=== PATIENT | female | born 2000 | race Caucasian/White ===

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

== ENCOUNTER 2024-03-28 16:38 | Emergency (ER) | payer OTHER, SELFPAY ==
--- NOTE | ~2024-03-28 | CT_ITS ---
CLINICAL HISTORY: cough, R CP, SOB, elevated dimer(318) CT angiography chest with contrast. 3D Postprocessing. Comparison: None Findings: Mild motion artifact limits evaluation. The heart size is normal. RV/LV ratio is normal. The thoracic aorta is normal caliber. No acute pulmonary embolus. The visualized thyroid and mediastinum are unremarkable. Minimal tree-in-bud nodularity in the left lower lobe. No significant pleural effusion or pneumothorax. The upper abdomen is unremarkable. The bones are intact. IMPRESSION: 1. No evidence of PE. 2. Minimal tree-in-bud nodularity in the left lower lobe, can be seen with aspiration or pneumonia. This document has been electronically signed by: Luis Ayon MD on 03/28/2024 22:51:06
--- NOTE | ~2024-03-28 | XR_ITS ---
CLINICAL HISTORY: cough, sob 2 view chest x-ray Comparison: None Findings: No consolidation or effusion. Normal size heart. No acute fracture. IMPRESSION: 1. No acute findings. This document has been electronically signed by: Jenn Barrientos MD on 03/28/2024 18:06:22
[2024-03-28 17:11] VITALS: BP 117/87; PULSE 115; RESP 20; TEMP 36.7; O2SAT 100; BMI 18.0
--- NOTE | 2024-03-28 17:13 | ED_ITS ---
HPI - Chest Pain General Chief Complaint: Dyspnea Stated Complaint: Chest Congestion Time Seen by Provider: 03/28/24 20:03 Source: patient and EMS Mode of arrival: EMS Limitations: no limitations History of Present Illness ED Provider: Agustina Loya NP HPI narrative: Patient is a 23-year-old female who presents emergency department for evaluation. She has been experiencing diffuse right anterior chest pain radiating into her back, at times this is exacerbated with cough and also experienced without cough. Endorses shortness of breath as well during cough but also while at rest. Denies feeling overtly ?sick? but admits to decreased oral intake in addition. One week ago she was given a prescription for Tessalon Perles/benzonatate which she feels has not made a significant difference in her symptoms. She denies the use of oral contraceptives, personal history of malignancy, personal or family history of VTE/coagulation disorders, recent prolonged immobilization or surgery. Denies recent lower extremity redness pain or swelling. Pain does not radiate has no associated diaphoresis, nausea, vomiting or dyspnea on exertion. Denies any family history of sudden cardiac at a young age. Related Data Previous Rx's ?Medication ?Instructions ?Recorded amoxicillin 500 mg capsule 1,000 mg (2 x 500 mg) PO TID 5 03/28/24 days #30 caps Allergies Allergy/AdvReac Type Severity Reaction Status Date / Time No Known Allergies Allergy Verified 03/28/24 17:14 Review of Systems 2 Review of Systems: Yes all other systems are reviewed and are negative PMFSH Past Medical History Attestation statement: The following information was validated with the patient. Source: old records reviewed Medical History Ovarian cyst Heart murmur Social History Social History Advance Directives: No Advance Directives Information Provided: Yes Do you have a plan to hurt others: No Plan Physical Exam 2 Vital Signs: Vital Signs: Last Vital Signs Temp 97.3 F 03/28/24 22:45 Pulse 88 03/28/24 22:45 Resp 18 03/28/24 22:45 BP 118/73 03/28/24 22:45 Pulse Ox 100 03/28/24 22:45 O2 Del Method Room Air 03/28/24 22:45 BMI result Body Mass Index 18.0 Appearance: Alert.?Oriented to person, place and time. No acute distress.?Normal affect. Eyes: Pupils equal, round and reactive to light.? ENT: Pharynx normal.?? Neck: Normal inspection.? Neck supple.??No JVD. CVS: Heart sounds normal. Normal heart rate and rhythm.? Pulses normal.?? Respiratory: No respiratory distress.? Lung sounds clear to auscultation bilaterally?? Abdomen: Soft and non-tender. Normoactive bowel sounds. No pulsatile mass.?? Skin: Skin warm and dry.? Normal skin color.? ?? Extremities: No lower extremity edema.? No calf ttp? Neuro: Moves all extremities spontaneously. Sensation intact bilaterally. CN II- XII intact. No focal neuro deficits. Ambulates with normal steady gait. Course Course Course Narrative: This is a Rapid Medical Exam performed in triage by Lakeshia Negro PA-C. Full HPI, ROS and PE to be performed by primary ED provider. 23 yo F presenting to the ED c/o pain with inspiration & pain w/coughing x few weeks. +SOB & decreased appetite. Denies hx blood clots. Not currently on OCPs. Denies smoking cigarettes. PE: tachycardic, talking in complete sentences Plan: EKG, labs, viral testing, CXR Medications Administered Discontinued Medications Generic Name Dose Route Start Last Admin Trade Name Freq PRN Reason Stop Dose Admin Sodium Chloride 1,000 mls @ 999 mls/hr 03/28/24 21:15 03/28/24 22:53 Ns IV 03/28/24 22:15 999 mls/hr .Q1H1M MANISH Administration Iohexol 65 ml 03/28/24 22:26 03/28/24 22:26 Iohexol 350 Mg/Ml 100 Ml Infus..Btl IV 03/28/24 22:27 65 ml ONCE ONE Administration Medical Decision Making Medical Decision Making MDM Narrative: Patient is a 23-year-old female who presents emergency department for evaluation of chest pain, shortness of breath, and cough as per HPI. No evidence of volume overload or shock on exam. EKG without signs of acute ischemia/STEMI, ventricular rate of 86, QTC 397. D-dimer was obtained prior to my assumption of care and is elevated above cutoff, obtaining CT angio of the chest to exclude pulmonary embolism although she does not have risk factors for such, she is however tachycardic with nonreproducible chest pain, may be costochondritis in the setting of cough due to potentially a viral respiratory illness. No risk factors for ACS lower suspicion for this. No recent trauma or injury, no tracheal deviation, unlikely tension pneumothorax. No abdominal tenderness upon palpation, negative Zayas sign, unlikely acute cholecystitis, choledocholithiasis, no fever or jaundice to suggest acute cholangitis, may possibly be biliary colic secondary to cholelithiasis. Denies associated acid reflux, no tenderness upon palpation over the epigastrium or left upper quadrant to suggest gastritis, no recent hematemesis history less likely to suggest PUD. Denies excessive alcohol consumption, history of diabetes, lower suspicion acute pancreatitis. Differential Diagnosis Differential Diagnoses: The differential diagnosis associated with the presentation includes (See narrative above) Admission/Observation Consideration of admission/observation: Escalation of care including admission/observation considered (See narrative above and course narrative for further detail) Lab Data MDM Lab Attestation statement: I reviewed the patient's lab results. CBC is without leukocytosis or anemia, mild thrombocytosis. No significant electrolyte derangement. No ANNY. High sensitive troponin below detectable limits. LFTs within normal range. Viral serologies are negative. 03/28/24 17:31 03/28/24 17:31 Labs: Lab Results 03/28/24 Range/Units 17:31 WBC 7.7 (4.8-10.8) X10*3/uL RBC 4.46 (4.20-5.50) X10*6/uL Hgb 13.3 (12.0-16.0) g/dl Hct 39.0 (37.0-47.0) % MCV 87.4 (80.0-98.0) fL MCH 29.8 (27.0-33.0) pg MCHC 34.1 (31.0-35.0) g/dl RDW 11.9 (11.0-16.0) % Plt Count 417 H (160-400) X10*3/uL MPV 10.0 (9.4-12.3) fL Immature Gran % (Auto) 0.3 (0.0-0.4) % Neut % (Auto) 66.1 (45-73) % Lymph % (Auto) 26.3 (20-40) % [place] % (Auto) 6.3 (2-11) % Eos % (Auto) 0.7 (0-4) % Baso % (Auto) 0.3 (0-2) % Lymph # (Auto) 2.0 (1.2-4.9) X10*3/uL [place] # (Auto) 0.5 (0.1-1.2) X10*3/uL Eos # (Auto) 0.1 (0.0-0.4) X10*3/uL Baso # (Auto) 0.0 (0.0-0.2) X10*3/uL Abs Immat Gran (auto) 0.02 (0.00-0.03) X10*3/uL Absolute Neuts (auto) 5.1 (2.0-8.3) x10*3/uL Absolute Nucleated RBC 0.000 (0.0-0.012) X10*3/uL Nucleated RBC % (auto) 0.0 (0.0-0.2) /100WBC PT 13.3 H (10.9-12.4) SEC INR 1.1 (0.9-1.1) D-Dimer High Sensitivty 318 NG/ML Sodium 147 H (135-145) mmol/L Potassium 3.7 (3.3-5.1) mmol/L Chloride 110 H (96-108) mmol/L Carbon Dioxide 29 (22-29) mmol/L Anion Gap 12 (12-20) BUN 5 L (9-16) mg/dL Creatinine 0.73 (0.5-1.4) mg/dL Estim Creat Clear Calc 82.9 Estimated GFR > 60 Random Glucose 79 (60-115) mg/dL Calcium 10.2 (8.4-10.2) mg/dL Total Bilirubin 0.8 (0.0-1.0) mg/dL Direct Bilirubin 0.3 (0.0-0.5) mg/dL AST 29 (5-31) U/L ALT 18 (0-31) U/L Alkaline Phosphatase 100 (39-117) U/L Troponin I High Sens < 2.7 (<3.5-17.0) ng/L B-Natriuretic Peptide 12 (<100) pg/mL Total Protein 8.7 H (6.5-8.0) g/dL Albumin 4.7 (3.5-5.0) g/dL Beta HCG, Quant < 2 mIU/mL Influenza Type A (PCR) NEGATIVE (Negative) Influenza Type B (PCR) NEGATIVE (Negative) RSV RNA Qual (PCR) NEGATIVE (Negative) SARS-CoV-2 RNA (RT-PCR) NEGATIVE (Negative) Independent Interpretation I performed an independent interpretation of an: EKG (See narrative above) and Plain X-Ray (No Consolidation or infiltrate) Radiology Impression Discussion of test interpretation with radiology: I have reviewed the radiologist's reading. Radiologist Impression: 2 view chest x-ray Comparison: None Findings: No consolidation or effusion. Normal size heart. No acute fracture. IMPRESSION: 1. No acute findings. IMPRESSION: 1. No evidence of PE. 2. Minimal tree-in-bud nodularity in the left lower lobe, can be seen with aspiration or pneumonia. Independent Historian Clinical information obtained from an independent historian. History obtained from or confirmed by: Spouse External Record Review External record reviewed: Outpatient record Discharge Plan Discharge Clinical Impression: Community acquired pneumonia Patient Disposition: Home, Self-Care Instructions: Community Acquired Pneumonia (ED) Additional Instructions: CT scan does not show evidence of a blood clot lungs this is very reassuring. It does however show that you have pneumonia in the left lower lung. For this I have sent in antibiotic prescription to your pharmacy. Please complete the entire course. You may continue use of Tessalon Perles/benzonatate for cough. People can develop pain is here describing from inflammation due to the cough as well as with the infection. This symptoms can for some people last up to 6 weeks. Follow up with your primary care doctor as needed. You may return to emergency department any new or worsening symptoms or concerns. Prescriptions: New amoxicillin 500 mg capsule 1,000 mg PO TID 5 Days Qty: 30 0RF Referrals: Ritesh Randle MD [Primary Care Provider] - Print Language: Citizen Of [place]
--- NOTE | 2024-03-28 17:14 | ECG_ITS ---
Test Reason : SOB Blood Pressure : */* mmHG Vent. Rate : 86 BPM Atrial Rate : 86 BPM P-R Int : 134 ms QRS Dur : 78 ms QT Int : 332 ms P-R-T Axes : 72 26 18 degrees QTcB Int : 397 ms Normal sinus rhythm with sinus arrhythmia Possible Left atrial enlargement Borderline ECG No previous ECGs available Referred By: Lakeshia Negro Electronically Signed By: MARIIA GARVEY
[2024-03-28 17:36] LABS: MANUAL DIFF FLAG NO
[2024-03-28 17:37] LABS: Basophils Percent Auto 0.3 % (0-2); Eosinophils Absolute Auto 0.1 X10*3/uL (0.0-0.4); Eosinophils Percent Auto 0.7 % (0-4); Hemoglobin 13.3 g/dl (12.0-16.0); Imm Gran Abs Auto 0.02 X10*3/uL (0.00-0.03); Imm Gran Pct Auto 0.3 % (0.0-0.4); Lymphocytes Percent Auto 26.3 % (20-40); Mean Corpuscular HGB Conc 34.1 g/dl (31.0-35.0); Mean Corpuscular Hemoglobin 29.8 pg (27.0-33.0); Mean Corpuscular Volume 87.4 fL (80.0-98.0); Monocytes Absolute Auto 0.5 X10*3/uL (0.1-1.2); Monocytes Percent Auto 6.3 % (2-11); Neutrophils Absolute Auto 5.1 x10*3/uL (2.0-8.3); Neutrophils Percent Auto 66.1 % (45-73); Platelet Count 417 X10*3/uL (160-400); Red Blood Count 4.46 X10*6/uL (4.20-5.50); Red Cell Distribution Width 11.9 % (11.0-16.0); White Blood Count 7.7 X10*3/uL (4.8-10.8)
[2024-03-28 17:57] LABS: Alanine Aminotransferase 18 U/L (0-31); Albumin Level 4.7 g/dL (3.5-5.0); Anion Gap 12 (12-20); Aspartate Amino Transferase 29 U/L (5-31); Bilirubin Direct 0.3 mg/dL (0.0-0.5); Bilirubin Total 0.8 mg/dL (0.0-1.0); Blood Urea Nitrogen 5 mg/dL (9-16); Calcium 10.2 mg/dL (8.4-10.2); Carbon Dioxide 29 mmol/L (22-29); Chloride 110 mmol/L (96-108); Creatinine Clr Calc Pharmacy 82.9; Estimated Glomerular Filt Rate > 60; Glucose Random 79 mg/dL (60-115); Potassium 3.7 mmol/L (3.3-5.1); Sodium 147 mmol/L (135-145); Total Protein 8.7 g/dL (6.5-8.0)
[2024-03-28 17:58] LABS: INTERNATIONAL NORM RATIO 1.1 (0.9-1.1); Prothrombin Time 13.3 SEC (10.9-12.4)
[2024-03-28 18:00] LABS: B Type Natriuretic Peptide 12 pg/mL (<100)
[2024-03-28 18:04] LABS: Troponin-I High Sensitivity < 2.7 ng/L (<3.5-17.0)
[2024-03-28 18:18] LABS: Alkaline Phosphatase 100 U/L (39-117)
[2024-03-28 18:25] LABS: Influenza A PCR NEGATIVE (Negative); Influenza B PCR NEGATIVE (Negative); Resp Syncy Virus RNA Qual PCR NEGATIVE (Negative); SARS COV2 PCR INHOUSE NEGATIVE (Negative)
[2024-03-28 20:18] LABS: D Dimer High Sensitivity 318 NG/ML
[2024-03-28 21:59] LABS: HCG Quantitative < 2 mIU/mL
[2024-03-28] MEDS: iohexoL 350 MG/ML 100 ML INFUS..BTL 65 ML IV (22:26)
[2024-03-28 22:45] VITALS: BP 118/73; PULSE 88; RESP 18; TEMP 36.3; O2SAT 100
[2024-03-28] MEDS: 0.9 % Sodium Chloride 1,000 ML 999 ML IV (22:53)
[2024-03-29 00:28] VITALS: BP 119/66; PULSE 82; RESP 16; TEMP 36.2; O2SAT 99
[2024-03-29 00:31] VITALS: BP 119/66; PULSE 82; RESP 16; TEMP 36.2; O2SAT 99
== END 2024-03-29 00:32 | disposition home or self-care (01) ==
PROVIDERS: Nurse Practitioner Family; Physician Assistant; Emergency Provider Emergency Medicine Emergency Medical Services; PCP Pediatrics
DX: R07.89 Other chest pain (principal); M54.50 Low back pain, unspecified; R06.02 Shortness of breath; R05.9 Cough, unspecified; R10.12 Left upper quadrant pain; I49.8 Other specified cardiac arrhythmias; Z03.818 Encounter for observation for suspected exposure to other biological agents ruled out; Z79.899 Other long term (current) drug therapy
CPT/HCPCS: 0241U; 71046; 71275; 80048; 80076; 83880; 84484; 84702; 85025; 85379; 85610; 93005; 96360; 99284; 99285; Q9967

== ENCOUNTER → 2024-03-28 17:14 | Outpatient (BNV) | payer OTHER, SELFPAY | PROVIDERS: PCP Pediatrics; Visit Provider Nuclear Medicine | DX: R05.9 Cough, unspecified (principal); R06.02 Shortness of breath; R07.89 Other chest pain | CPT/HCPCS: 71046; 71275 ==

== ENCOUNTER → 2024-03-28 17:14 | Outpatient (BNV) | payer OTHER, SELFPAY | PROVIDERS: Emergency Provider Emergency Medicine Emergency Medical Services; PCP Pediatrics; Visit Provider Internal Medicine | DX: R06.02 Shortness of breath (principal) | CPT/HCPCS: 93010 ==

== ENCOUNTER 2024-07-17 11:24 | Emergency (ER) | payer OTHER, SELFPAY ==
[2024-07-17 11:29] VITALS: BP 133/100; PULSE 150; RESP 12; TEMP 36.7; O2SAT 100; BMI 17.2
--- NOTE | 2024-07-17 11:30 | ED.GENADULT ---
HPI - General Adult General Chief complaint: Psychiatric Symptoms Stated complaint: Crisis Time Seen by Provider: 07/17/24 11:54 Related Data Home Medications ?Medication ?Instructions ?Recorded ?Confirmed No Known Home Meds 07/17/24 07/17/24 Allergies Allergy/AdvReac Type Severity Reaction Status Date / Time No Known Allergies Allergy Verified 07/17/24 11:32 [facility] Past Medical History Medical History Ovarian cyst Heart murmur Social History Social History Smoked in Last 30 Days: Yes Use of substances other than those prescribed or required for medical reasons: Yes Substance Use Type: Marijuana Any prior treatment program specific to substance use: No Advance Directives: No Advance Directives Information Provided: Yes Do you have a plan to hurt others: No Plan Patient : No Physical Exam ED Vital Signs: Vital Signs - 24 hr 07/17/24 11:29 Temperature 98.1 F Pulse Rate 150 H Respiratory Rate 12 Blood Pressure 133/100 H Pulse Oximetry 100 Oxygen Delivery Method Room Air BMI result Body Mass Index 17.2 Course Course Course Narrative: RME, this is a rapid medical exam performed by Alon Peterson please refer to primary provider for complete H&P- 23 year old female presents for evaluation of depression with suicidal ideation. Reports history of cutting but has not tried to hurt herself recently. Plan for medical clearance and care team consult Medications Administered Discontinued Medications Generic Name Dose Route Start Last Admin Trade Name Freq PRN Reason Stop Dose Admin Ondansetron HCl 4 mg 07/17/24 14:13 07/17/24 15:09 Ondansetron Odt 4 Mg Tab.Rapdis TRANSLINGU 07/17/24 14:14 4 mg ONCE ONE Administration Medical Decision Making Lab Data 07/17/24 11:51 07/17/24 11:51 Labs: Lab Results 07/17/24 07/17/24 07/17/24 Range/Units 11:51 12:52 12:53 WBC 11.2 H (4.8-10.8) X10*3/uL RBC 4.75 (4.20-5.50) X10*6/uL Hgb 14.4 (12.0-16.0) g/dl Hct 42.4 (37.0-47.0) % MCV 89.3 (80.0-98.0) fL MCH 30.3 (27.0-33.0) pg MCHC 34.0 (31.0-35.0) g/dl RDW 12.0 (11.0-16.0) % Plt Count 310 D (160-400) X10*3/uL MPV 11.1 (9.4-12.3) fL Immature Gran % (Auto) 0.2 (0.0-0.4) % Neut % (Auto) 74.0 H (45-73) % Lymph % (Auto) 18.9 L (20-40) % [place] % (Auto) 6.2 (2-11) % Eos % (Auto) 0.4 (0-4) % Baso % (Auto) 0.3 (0-2) % Lymph # (Auto) 2.1 (1.2-4.9) X10*3/uL [place] # (Auto) 0.7 (0.1-1.2) X10*3/uL Eos # (Auto) 0.0 (0.0-0.4) X10*3/uL Baso # (Auto) 0.0 (0.0-0.2) X10*3/uL Abs Immat Gran (auto) 0.02 (0.00-0.03) X10*3/uL Absolute Neuts (auto) 8.3 (2.0-8.3) x10*3/uL Absolute Nucleated RBC 0.000 (0.0-0.012) X10*3/uL Nucleated RBC % (auto) 0.0 (0.0-0.2) /100WBC Sodium 140 (135-145) mmol/L Potassium 3.5 (3.3-5.1) mmol/L Chloride 102 (96-108) mmol/L Carbon Dioxide 25 (22-29) mmol/L Anion Gap 17 (12-20) BUN 5 L (9-16) mg/dL Creatinine 0.76 (0.5-1.4) mg/dL Estim Creat Clear Calc 78.7 Estimated GFR > 60 Random Glucose 157 H (60-115) mg/dL Calcium 10.2 (8.4-10.2) mg/dL Total Bilirubin 1.9 H (0.0-1.0) mg/dL AST 29 (5-31) U/L ALT 13 (0-31) U/L Alkaline Phosphatase 106 (39-117) U/L Total Protein 8.8 H (6.5-8.0) g/dL Albumin 5.1 H (3.5-5.0) g/dL TSH 0.30 L (0.32-4.0) uIU/mL Free T4 1.28 (0.71-1.85) ng/dL Urine Color Dark Yellow Urine Appearance Clear Urine pH 5.5 (5.0-9.0) Ur Specific [place] >= 1.030 H (1.005-1.025) Urine Protein 300 (3+) H (Neg-Trace) mg/dL Urine Glucose (UA) Negative (Negative) mg/dL Urine Ketones 15 (Negative) mg/dL Urine Blood Negative (Negative) Urine Nitrite Negative (Negative) Ur Leukocyte Esterase Trace H (Negative) Urine RBC 0-2 (0-2) /HPF Urine WBC 0-5 (0-5) /HPF Ur Squamous Epith Cells 11-20 (0-2) /HPF Urine Bacteria Trace (None Seen) Hyaline Casts 3-5 (0-2) /LPF Urine Test NEGATIVE (NEGATIVE) Salicylates < 5.0 L (15-30) mg/dL Urine Opiates Screen Not Detected (Not Detect) Ur Buprenorphine Scrn Not Detected (Not Detect) ng/mL Ur Oxycodone Screen Not Detected (Not Detect) ng/mL Urine Methadone Screen Not Detected (Not Detect) ng/mL Urine Fentanyl Screen Not Detected (Not Detect) Acetaminophen < 3 (<30) mcg/mL Ur Barbiturates Screen Not Detected (Not Detect) Ur Phencyclidine Scrn Not Detected (Not Detect) Ur Amphetamines Screen Not Detected (Not Detect) U Benzodiazepines Scrn Not Detected (Not Detect) Urine Cocaine Screen Not Detected (Not Detect) U Marijuana (THC) Screen POSITIVE H (Not Detect) Ethyl Alcohol < 10 mg/dL Discharge Plan Discharge Clinical Impression: Suicidal ideation Prescriptions: No Action No Known Home Meds Interventions: [place]-Suicide Risk Severity Scale Last Done: 07/17/24 11:33 Print Language: Greek
--- NOTE | 2024-07-17 11:35 | ECG_ITS ---
Test Reason : TACHY Blood Pressure : */* mmHG Vent. Rate : 122 BPM Atrial Rate : 122 BPM P-R Int : 114 ms QRS Dur : 66 ms QT Int : 300 ms P-R-T Axes : 66 38 -14 degrees QTcB Int : 427 ms Sinus tachycardia Nonspecific ST abnormality Abnormal ECG When compared with ECG of 28-Mar-2024 17:24, ST now depressed in Inferior leads ST now depressed in Anterior leads Nonspecific T wave abnormality no longer evident in Anterior leads Referred By: Lawrence Peterson Electronically Signed By: Vincenzo Alberts
[2024-07-17 11:56] LABS: MANUAL DIFF FLAG NO
[2024-07-17 11:58] LABS: Basophils Percent Auto 0.3 % (0-2); Eosinophils Percent Auto 0.4 % (0-4); Hematocrit 42.4 % (37.0-47.0); Hemoglobin 14.4 g/dl (12.0-16.0); Imm Gran Abs Auto 0.02 X10*3/uL (0.00-0.03); Imm Gran Pct Auto 0.2 % (0.0-0.4); Lymphocytes Absolute Auto 2.1 X10*3/uL (1.2-4.9); Lymphocytes Percent Auto 18.9 % (20-40); Mean Corpuscular Hemoglobin 30.3 pg (27.0-33.0); Mean Corpuscular Volume 89.3 fL (80.0-98.0); Mean Platelet Volume 11.1 fL (9.4-12.3); Monocytes Absolute Auto 0.7 X10*3/uL (0.1-1.2); Monocytes Percent Auto 6.2 % (2-11); Neutrophils Absolute Auto 8.3 x10*3/uL (2.0-8.3); Platelet Count 310 X10*3/uL (160-400); Red Blood Count 4.75 X10*6/uL (4.20-5.50); White Blood Count 11.2 X10*3/uL (4.8-10.8)
[2024-07-17 12:15] LABS: Acetaminophen LAB < 3 mcg/mL (<30); Alanine Aminotransferase 13 U/L (0-31); Albumin Level 5.1 g/dL (3.5-5.0); Alkaline Phosphatase 106 U/L (39-117); Anion Gap 17 (12-20); Aspartate Amino Transferase 29 U/L (5-31); Bilirubin Total 1.9 mg/dL (0.0-1.0); Blood Urea Nitrogen 5 mg/dL (9-16); Calcium 10.2 mg/dL (8.4-10.2); Carbon Dioxide 25 mmol/L (22-29); Chloride 102 mmol/L (96-108); Creatinine Clr Calc Pharmacy 78.7; Estimated Glomerular Filt Rate > 60; Ethanol < 10 mg/dL; Glucose Random 157 mg/dL (60-115); Potassium 3.5 mmol/L (3.3-5.1); Salicylate < 5.0 mg/dL (15-30); Sodium 140 mmol/L (135-145); Total Protein 8.8 g/dL (6.5-8.0)
--- NOTE | 2024-07-17 12:15 | PC.NURSE ---
assumed care of pt at 1200. pt is resting comfortably in bed at this time. no acute concerns.
--- NOTE | 2024-07-17 12:54 | PC.NURSE ---
PT REPORTS COMING TO THE ED DUE TO INCREASED DEPRESSION WITH THOUGHTS OF SI. PT HAS HAD THOUGHTS OF SELF HARM AND PLAN INTERMITTENTLY. PT IS HAVING A DIFFICULT TIME WITH HYGIENE INCLUDING BRUSHING HER TEETH, CHANGING HER CLOTHING. SHE HAS STRUGGLED TO FEED HERSELF LATELY RESULTING IN WEIGHT LOSS. PT REPORTS THAT SHE HAS NO OUTPATIENT PROVIDERS, NO PAST [facility] ADMISSIONS, AND NO PSYCHIATRIC MEDICATIONS. PT STATES SHANT JUST BEEN REALLY SAD AND DONT KNOW WHAT TO DO . HISTORY OF SELF HARM 5-7 YEARS AGO. PT REPORTS HER DEPRESSION INCREASED AFTER HER FATHER APPROXIMATELY 1 YEAR AGO. DENIES AH OR VH. PT GOES THROUGH PERIODS OF NOT SLEEPING ENOUGH OR SLEEPING TOO MUCH. PT REPORTS SEVERE ANXIETY THAT IS IMPAIRING HER LEVEL OF FUNCTIONING AND MAKES IT DIFFICULT TO LEAVE HER HOUSE. PT IS CURRENTLY UNEMPLOYED. LIVING WITH MOM WHO SHE REPORTS IS A POSITIVE SUPPORT. FEELS SAFE IN THE POD.
[2024-07-17 13:12] LABS: UPreg QC Valid YES; Urine Pregnancy NEGATIVE (NEGATIVE)
[2024-07-17 13:20] LABS: Amphetamine Screen Urine Not Detected (Not Detect); Barbiturates, Urine Not Detected (Not Detect); Benzodiazepines Screen Urine Not Detected (Not Detect); Buprenorphine Scr Not Detected (Not Detect); Cannabinoid Screen Urine POSITIVE (Not Detect); Cocaine Screen Urine Not Detected (Not Detect); Fentanyl, urine Not Detected (Not Detect); Methadone Screen, Urine Not Detected (Not Detect); Opiate Screen Urine Not Detected (Not Detect); Oxycodone Screen Urine Not Detected (Not Detect); Phencyclidine Screen Urine Not Detected (Not Detect)
[2024-07-17 13:22] LABS: Free T4 (Free Thyroxine) 1.28 ng/dL (0.71-1.85)
[2024-07-17 13:27] LABS: Appearance Urine Clear; Color Urine Dark Yellow; Glucose Urine UA Negative (Negative); Leukocyte Esterase Urine Trace (Negative); Nitrite Urine Negative (Negative); PH 5.5 (5.0-9.0); Specific Gravity - Urine >= 1.030 (1.005-1.025); UMIC TRIGGER UA YES; Urine Blood Negative (Negative); Urine Ketones 15 mg/dL (Negative); Urine Protein 300 (3+) mg/dL (Neg-Trace)
[2024-07-17 13:31] LABS: Bacteria Urine Trace (None Seen); RBC Urine 0-2 /HPF (0-2); WBC Urine 0-5 /HPF (0-5)
--- OUTSIDE RECORDS SUMMARY | 2024-07-17 13:42 | XMS_ITS | Encounter Summary ---
Author Organization [facility] Address [address] [place] [address] Care Team Providers Care Field Service Engineer Name Role Phone Ritesh De La Cruz MD Primary Care Provider Jelena gaspar [facility], Pcp Primary Care Provider Marii Dial MD Primary Care Provider [phone] Warren Hussein MD Primary Care Provider + Encounter Details Date Type Department Care Team Description 01/23/2016 Hygiene Teacher Report Medical Records [address] [place] [id number] Cassidy Mae Social History Tobacco Use Types Packs/Day Years Used Date Smoking Tobacco: Never Smokeless Tobacco: Never Comments:parents smoke outsi de Alcohol Use Standard Drinks/Week Comments Not Asked 0 (1 standard drink = 0.6 oz pur e alcohol) Sex Assigned at Date Recorded Not on file Job Start Date Occupation Industry Not on file Not on file Not on file documented as of this encounter Plan of Treatment Not on file documented as of this encounter Visit Diagnoses Not on filedocumented in this encounter Care Teams Field Service Engineer Relationship Specialty Start Date End Date Ritesh De La Cruz MD PCP - General 06/12/10 03/15/22 [facility], Pcp PCP - General Internal Medicine 03/16/22 10/19/22 Marii Dunn MD [address] [place] [address] PCP - General Internal Medicine 10/20/22 10/23/23 Warren Hussein MD [address] [place] [address] PCP - General Internal Medicine 10/24/23 documented as of this encounter
--- OUTSIDE RECORDS SUMMARY | 2024-07-17 13:42 | XMS_ITS | Encounter Summary ---
Author Organization [facility] Address [address] [place] [address] Care Team Providers Care Account Underwriter Name Role Phone Warren Hussein MD Primary Care Provider + Reason for Visit * Reason Onset Date Comments medication problems 12/21/2023 Encounter Details Date Type Department Care Team Description 12/21/2023 Telephone OBGYN - [place] [address] [place] [address] Alice Moffett PA-C [address] [place] [address] medication problems Social History Tobacco Use Types Packs/Day Years Used Date Smoking Tobacco: Never Smokeless Tobacco: Never Alcohol Use Standard Drinks/Week Comments No 0 (1 standard drink = 0.6 oz pur e alcohol) Sex Assigned at Date Recorded Not on file Job Start Date Occupation Industry Not on file Not on file Not on file documented as of this encounter Miscellaneous Notes * Telephone Encounter - Arelis Hitchcock - 12/21/2023 3:19 PM EDT [facility] norelgestromin-ethinyl estradiol (ORTHO EVRA) 150-35 MCG/24HR because resend with provider's signature documented in this encounter Plan of Treatment Not on file documented as of this encounter Visit Diagnoses Not on filedocumented in this encounter Care Teams Account Underwriter Relationship Specialty Start Date End Date Warren Hussein MD [address] [place] [id number] PCP - General Internal Medicine 10/24/23 documented as of this encounter
--- OUTSIDE RECORDS SUMMARY | 2024-07-17 13:42 | XMS_ITS | Encounter Summary ---
Author Organization [facility] Address [address] [place] [address] Care Team Providers Care Dog Or Horse Racing Official Name Role Phone Ritesh De La Cruz MD Primary Care Provider Jelena gaspar [facility], Pcp Primary Care Provider Marii Dial MD Primary Care Provider [phone] Warren Hussein MD Primary Care Provider + Encounter Details Date Type Department Care Team Description 02/06/2016 Bindery Cutter Operator Report Medical Records [address] [place] [id number] Kishore Merida MD Social History Tobacco Use Types Packs/Day Years Used Date Smoking Tobacco: Never Smokeless Tobacco: Never Comments:parents smoke outsi de Alcohol Use Standard Drinks/Week Comments No 0 [...] on filedocumented in this encounter Care Teams Dog Or Horse Racing Official Relationship Specialty Start Date End Date Ritesh De La Cruz MD PCP - General 06/12/10 03/15/22 [facility], Pcp PCP - General Internal Medicine 03/16/22 10/19/22 Marii Dunn MD [address] [place] [address] PCP - General Internal Medicine 10/20/22 10/23/23 Warren Hussein MD [address] [place] [address] PCP - General Internal Medicine 10/24/23 documented as of this encounter
--- OUTSIDE RECORDS SUMMARY | 2024-07-17 13:42 | XMS_ITS | Encounter Summary ---
Author Organization [facility] Address [address] [place] [address] Care Team Providers Care Senior Occupational Therapist Name Role Phone Ritesh De La Cruz MD Primary Care Provider Jelena gaspar [facility], Pcp Primary Care Provider Marii Dial MD Primary Care Provider [phone] Warren Hussein MD Primary Care Provider + Encounter Details Date Type Department Care Team Description 07/25/2018 Satellite Dish Repairer Report Medical Records [address] [place] [address] Social History Tobacco Use Types Packs/Day Years [...] on filedocumented in this encounter Care Teams Senior Occupational Therapist Relationship Specialty Start Date End Date Ritesh De La Cruz MD PCP - General 06/12/10 03/15/22 [facility], Pcp PCP - General Internal Medicine 03/16/22 10/19/22 Marii Dunn MD [address] [place] [address] PCP - General Internal Medicine 10/20/22 10/23/23 Warren Hussein MD [address] [place] [id number] PCP - General Internal Medicine 10/24/23 documented as of this encounter
--- OUTSIDE RECORDS SUMMARY | 2024-07-17 13:42 | XMS_ITS | Encounter Summary ---
Author Organization [facility] Address [address] [place] [address] Care Team Providers Care Pipe And Tank Fabricator Name Role Phone Ritesh De La Cruz MD Primary Care Provider Jelena gaspar [facility], Pcp Primary Care Provider Marii Dial MD Primary Care Provider [phone] Warren Hussein MD Primary Care Provider + Encounter Details Date Type Department Care Team Description 07/01/2016 End User Consultant Report Medical Records [address] [place] [id number] Kishore Merida MD Social History Tobacco Use [...] on filedocumented in this encounter Care Teams Pipe And Tank Fabricator Relationship Specialty Start Date End Date Ritesh De La Cruz MD PCP - General 06/12/10 03/15/22 [facility], Pcp PCP - General Internal Medicine 03/16/22 10/19/22 Marii Dunn MD [address] [place] [address] PCP - General Internal Medicine 10/20/22 10/23/23 Warren Hussein MD [address] [place] [address] PCP - General Internal Medicine 10/24/23 documented as of this encounter
--- OUTSIDE RECORDS SUMMARY | 2024-07-17 13:42 | XMS_ITS | Encounter Summary ---
Author Organization [facility] Address [address] [place] [address] Care Team Providers Care Paper Machine Operator Name Role Phone Ritesh De La Cruz MD Primary Care Provider [place] [facility], Pcp Primary Care Provider Marii Dial MD Primary Care Provider [phone] Warren Hussein MD Primary Care Provider + Encounter Details Date Type Department Care Team Description 02/09/2016 Release of Information Medical Records [address] [place] [address] Abstract, Provider Social History Tobacco Use Types Packs/Day Years [...] on filedocumented in this encounter Care Teams Paper Machine Operator Relationship Specialty Start Date End Date Ritesh De La Cruz MD PCP - General 06/12/10 03/15/22 [facility], Pcp PCP - General Internal Medicine 03/16/22 10/19/22 Marii Dunn MD [address] [place] [phone] PCP - General Internal Medicine 10/20/22 10/23/23 Warren Hussein MD [address] [place] [address] PCP - General Internal Medicine 10/24/23 documented as of this encounter
--- OUTSIDE RECORDS SUMMARY | 2024-07-17 13:42 | XMS_ITS | Clinical Summary ---
Author Organization [facility] [address] [place] [address] Address [address] [place] [address] Phone Care Team Providers Care Line Crewman Name Role Phone Warren Hussein MD Primary Care Pr ovider Allergies No known active allergies Medications norelgestromin- ethinyl estradiol (ORTHO EVRA) 150-35 mcg/[address] 1 Patch onto the skin once a week. Do not use a patch during the 4th week. Restart the following week again for 3 weeks; 1 patch per week. 4 01/16/20 25 Active clotrimazole-be tamethasone (LOTRISONE) 1-0.05 % cream Apply small amount to vulva twice daily for up to 7 days 4 08/26/19 25 Active benzonatate (TESSALON) 100 mg capsule Take 1 capsule (100 mg total) by mouth 3 (three) times a day if needed for cough. 5 Active amoxicillin (AMOXIL) 500 mg capsule Take 1 capsule (500 mg total) by mouth 3 (three) times a day. 5 Active albuterol HFA (PROAIR HFA ; PROVENTIL HFA ; VENTOLIN HFA) 90 mcg/actuation inhalerIndicati ons:Pneumonia of left lower lobe due to infectious organism Inhale 2 puffs by mouth every 4 (four) hours if needed (cough, wheezing, shortness of breath). 8.5 g 5 Active Active Problems Problem Noted Date Diagnosed Date Herpes simplex vulvovaginitis 09/01/2023 EBV infection 11/25/2020 Overview (02/10/2024): 02/03 POS IGG Adnexal cyst 11/25/2020 Overview (02/10/2024): Right without torsion, 10/30/2020 ED visit [facility] Sleep disorder 07/14/2018 Menorrhagia 06/09/2016 Overview (02/10/2024): OCP helped, forgetting, Nexplanon started severe abd pain. Patch started with no improvement 06/09/2016 started on OCP again 07/14/2018 OCP discontinued, nausea and vomiting. Mother to book follow-up appointment Last Assessment & Plan: I reviewed that heavy, painful, irregular periods are not uncommon in the first 5 years following menarche. That being said, OCP will likely help to decrease menstrual flow and cramping if any. Cysts of both ovaries 07/30/2015 Overview (02/10/2024): 06/03 stared on OCP due to severe pain. 10/08/15 seen in the ER due to pain, off OCP for few weeks but restarted. Last Assessment & Plan: Will repeat US and start OCP as noted above with hopes of suppression. Reviewed with patient and mother that suppression of menses is safe and has no known long-term negative effects. Chronic abdominal pain 04/07/2015 Overview (02/10/2024): 04/04/15 [facility] ER US: ovarian cyst R 5.1x4.1x4.8, suggesting FU US 6 weeks if persisting recommending MR 05-29-15 transabdominal pelvic U/S complex cystic mass L ovary/likely hemorrhagic cyst(similar to R ovary mass on previous exam) R ovary NL,no ovarian torsion/doppler of both ovaries WNL 01/03 seen in the ER again, abd pain, sever, Nl US, ref to GI . 01/22/16 GI: celiac testing, Endo and Colonoscopy 01/23/16 GI Endo and colonoscopy NL pending bx 02/06/16 GI [place] 2nd opinion: Metronidazol, omeprazol, cyproheptadine. FU 2 W 06/09/2016 never seen again in [place], mother was late and did not get seen does not want to go back. Pain again missed 2 weeks of school. Started on OCP, Cyproheptadine and omeprazole. Ref to GI Dr. Mae. 07/08/16 [place]:Labs, EGD/Colon, pain clinic ref, increase omperazol and Cyproheptadine FU 2 M 12/15/2016 as per mother not better, pain clinic appointment 05/08. Mother report NL colonoscopy. Will get records. gaining too much wt , Cyproheptadine d/c. 05/18/17: Pain clinic [place]: to see adolesent medicine due to hx of ovarian cyst, ref to nutrition, SW, continue to see PT, to see therapist. Acupuncture, aromatherapy. 07/25/18 [place]: IBS vs FAP. Spinal MRI, Zantac, MIralax, Bentyl, lidocaione patch. To have CBT. Book when your child Hurts, pt, try to go to school. FU2M Constipation 12/18/2012 Encounters Date Type Department Care Team Description 06/08/2024 Nurse Triage Adult Medicine [address] [phone] Warren Hussein MD Anxiety; Nausea; low appetite; Depression from Last 3 Months Immunizations Name Administration Dates Next Due DTaP (Infanrix) 6wks to less than 7yo ,02/27/2004,03/06/2003,12/27,2002 RDnP-YNE-DBO (Pentacel) 2mo to less than 5yo 12/03/2003,03/06/2003,2002,10/29 HPV 9-valent (Gardisil) 9yo to less than 46yo 06/16/2020,07/14/2018 Hepatitis B Pediatric (Enger ix B; Recombivax HB) to less than 20 yo 05/31/2003,2002,2002 IPV Inactivated polio (Ipol) 6wks and older 11/14/2006,02/27/2004,2002,10/29 MMR, measles mumps and rubel la Live (Priorix; M-M-R II) 12mo and older 09/04/2007,12/03/2003 Meningococcal MCV4P 06/16/2020,11/28/2013 Pneumococcal Conjugate Vacci ne, 7 Valent 2002 Tdap Tetanus diptheria acell ular pertussis (Boostrix; Adacel) 7yo and older 11/28/2013 Varicella live (Varivax) 12m o and older 04/14/2012,09/18/2003 Surgical History Surgery Date Site/Laterality Comments OTHER SURGICAL HISTORY PROCEDURE: DENIES PREVIOUS SURGERY Medical History Medical History Date Comments Constipation 12/18/2012 DX:Constipation EBV infection DX:EBV infection ; COMMENT: 02/03 POS IGG Ovarian cyst DX:Ovarian cyst; COMMENT: multple ER visits, OCP then nexplanon Adnexal cyst 11/25/2020 DX:Adnexal cyst; COMMENT: Right without torsion, 10/30/2020 ED visit [facility] Sleep disorder 07/14/2018 DX:Sleep disorde r Menorrhagia 06/09/2016 DX:Menorrhagia; COMMENT: OCP helped, forgetting, Nexplanon started severe abd pain. Patch started with no improvement 06/09/2016 started on OCP again 07/14/2018 OCP discontinued, nausea and vomiting. Mother to book follow-up appointment Cysts of both ovaries 07/30/2015 DX:Cysts o f both ovaries; COMMENT: 06/03 stared on OCP due to severe pain. 10/08/15 seen in the ER due to pain, off OCP for few weeks but restarted. Family History Medical History Relation Name Comments Breast cancer Aunt 50s-60 Colon cancer Neg Hx Ovarian cancer Neg Hx Relation Name Status Comments Aunt Social History Tobacco Use Types Packs/Day Years Used Date Smoking Tobacco: Never Smokeless Tobacco: Never Alcohol Use Standard Drinks/Week Comments No 0 (1 standard drink = 0.6 oz pur e alcohol) Comments No Sex and Gender Information Value Date Recorded Sex Assigned at Not on file Legal Sex Female 3:56 AM EST Gender Identity Not on file Sexual Orientation Not on file Obstetrics History Last Filed Vital Signs Vital Sign Reading Time Taken Comments Blood Pressure 128/71 04/03/2024 4:39 PM EST Pulse 96 04/03/2024 4:39 PM EST Temperature 36.6 ??C (97.8 ??F) 04/03/2024 4:39 PM ES T Respiratory Rate 14 04/03/2024 4:39 PM EST Oxygen Saturation 99% 04/03/2024 4:39 PM EST Inhaled Oxygen Concentration - - Weight 44 kg (97 lb) 04/03/2024 4:39 PM EST Height 157.5 cm (5' 2 ) 04/03/2024 4:39 PM EST Body Mass Index 17.74 04/03/2024 4:39 PM EST Plan of Treatment Health Maintenance Due Date Last Done Comments Meningococcal B Vaccine (1 of 2 - Standard) 2018 HPV Vaccines (3 - 3-dose series) 09/08/2020 06/16/2020, 07/14/2018 Annual Well Child Visit (3-21 years old) 02/21/2022 06/16/2020, 07/14/2018, 12/15/2016, Additional history exists Depression Screening 02/21/2022 Social Influencers of Health Screening 02/21/2022 Cervical Cancer Screening: Pap Smear 08/27/2023 COVID-19 Vaccine ( season) 2023 10/19/2020, 09/28/2020 DTaP,Tdap,and Td Vaccines (7 - Td or Tdap) 11/29/2023 11/28/2013, 11/14/2006, 02/27/2004, Additional history exists Gonorrhea/Chlamydia Screening 08/30/2024 08/31/2023 Influenza Vaccine (Season Ended) 2024 Pneumococcal Vaccine: Pediatrics (0 to 5 Years) and At-Risk Patients (6 to 64 Years) Aged Out 2002 No longer eligible based on patient's age to complete this topic Hepatitis B Vaccines Completed 05/31/2003, 2002, 2002 HIB Vaccines Completed 12/03/2003, 11/19, 03/06/2003, Additional history exists IPV Vaccines Completed 11/14/2006, 11/2003, 12/03/2003, Additional history exists MMR Vaccines Completed 09/04/2007, 12/03/2003 Varicella Vaccines Completed 04/14/2012, 09/18/2003 Meningococcal ACWY Vaccine Completed 06/16/2020, HIV Screening Completed 08/31/2023, 08/31/2023 Hepatitis C Screening Completed 08/31/2023 Hepatitis A Vaccines Aged Out No long er eligible based on patient's age to complete this topic RSV Immunization Patients Under 20 months Aged Out No longer eligible based on patient's age to complete this topic Procedures Procedure Name Priority Date/Time Associated Diagnosis Comments HEPATITIS C SCREENING Routine 08/31/2023 HIV SCREENING Routine 08/31/2023 GONORRHEA/CHLAMYDIA SCRREENING Routine 08/31/2023 from Last 3 Months or Most Recently Relevant to Health Maintenance Results * HIV Screening (08/31/2023) HIV Screening abstracted [facility] Provider MD HEALTH MAINTENANCE Final Result * Hepatitis C Screening (08/31/2023) Hepatitis C Screening abstracted [facility] Provider MD HEALTH MAINTENANCE Final Result * Gonorrhea/Chlamydia Screening (08/31/2023) Gonorrhea/Chla mydia Screening abstracted [facility] Provider HEALTH MAINTENANCE Final Result from Last 3 Months or Most Recently Relevant to Health Maintenance Insurance * Guarantor: Katie Draper Account Type Relation to Patient Date of Phone Billing Address Personal/Family Self 2000 [address] [place] [address] [facility] Care Teams Line Crewman Relationship Specialty Start Date End Date Warren Hussein MD [address] [place] [id number] PCP - General 10/24/23
--- OUTSIDE RECORDS SUMMARY | 2024-07-17 13:42 | XMS_ITS | Encounter Summary ---
Author Organization [facility] Address [address] [place] [address] Care Team Providers Care Rim Fire Charger Operator Name Role Phone Marii Dunn MD Primary Care Provider [phone] Warren Hussein MD Primary Care Provider + Encounter Details Date Type Department Care Team Description 10/25/2022 Release of Information Medical Records [address] [place] [id number] Abstract, Provider Social History Tobacco Use Types [...] on filedocumented in this encounter Care Teams Rim Fire Charger Operator Relationship Specialty Start Date End Date Marii Dunn MD [address] [place] [id number] PCP - General Internal Medicine 10/20/22 10/23/23 Warren Hussein MD [address] [place] [id number] PCP - General Internal Medicine 10/24/23 documented as of this encounter
--- OUTSIDE RECORDS SUMMARY | 2024-07-17 13:42 | XMS_ITS | Encounter Summary ---
Author Organization [facility] Address [address] [place] [address] Care Team Providers Care Construction Flagger Name Role Phone Ritesh De La Cruz MD Primary Care Provider [place] [facility], Pcp Primary Care Provider Marii Dial MD Primary Care Provider [phone] Warren Hussein MD Primary Care Provider + Encounter Details Date Type Department Care Team Description 04/26/2018 Release of Information Medical Records [address] [place] [address] Abstract, Provider Social History Tobacco Use Types [...] on filedocumented in this encounter Care Teams Construction Flagger Relationship Specialty Start Date End Date Ritesh De La Cruz MD PCP - General 06/12/10 03/15/22 [facility], Pcp PCP - General Internal Medicine 03/16/22 10/19/22 Marii Dunn MD [address] [place] [phone] PCP - General Internal Medicine 10/20/22 10/23/23 Warren Hussein MD [address] [place] [address] PCP - General Internal Medicine 10/24/23 documented as of this encounter
--- OUTSIDE RECORDS SUMMARY | 2024-07-17 13:42 | XMS_ITS | Encounter Summary ---
Author Organization [facility] Address [address] [place] [address] Care Team Providers Care Central Service Technician Name Role Phone Ritesh De La Cruz MD Primary Care Provider [facility], Pcp Primary Care Provider Marii Dial MD Primary Care Provider [phone] Warren Hussein MD Primary Care Provider + Reason for Visit * Reason Onset Date Comments Vaginal Bleeding 01/06/2016 Cyst 01/06/2016 Encounter Details Date Type Department Care Team Description 01/06/2016 Telephone OBGYN - [place] [address] [place] [address] Jayjay Rhoades CNM Vaginal Bleeding; Cyst Social History Tobacco Use Types Packs/Day Years [...] encounter Miscellaneous Notes * Telephone Encounter - Terra Garg R.N. - 01/08/2016 9:10 AM EDT Faxed record request to [facility] ER. KRYSTA * Telephone Encounter - Terra Garg R.N. - 01/08/2016 8:56 AM EDT Discussed with Heena EVANS Budget Analyst who states teens can be seen here but advised I speak with a provider. Discussed with Dr Gardner who states if pt has begun menstruation they are of age to be seen. Pt mom reports her dtr is home sleeping, she went to ER last night she was in a lot of pain. Pt wasseen at ER again yesterday, mom states labwork, urine , u/s and CT scan was done. Pt was seen at [facility]. Pt was given zofran for nausea and ibuprofen for pelvic pain on rt side. ER r/o appendicitis and felt it could be viral infection. No vaginal cultures were done, pt is not sexually active, mom is positive. Pt mom reports pt was on menses for 3 weeks, was light flow but now heavier. Pt has nexplanon in place for ovarian cyst. Appt scheduled today with Jayjay DAWSON, records to be obtained from [facility]. KRYSTA * Telephone Encounter - Terra Garg R.N. - 01/06/2016 4:05 PM EDT Called Lopez Budget Analyst for advice on this call. KRYSTA * Telephone Encounter - Denisha Pike - 01/06/2016 2:34 PM EDT Chief Complaint/problem: Patient's mother called. Patient saw women's lacrosse coach today at [facility] for ER follow up. Mom states patient has heavy vaginal bleeding and women's lacrosse coach believes it may be due to a ruptured cyst. Suggested she come to [facility] for follow up. How long has the patient had this problem? 3 weeks Pt???s [facility] provider: Jayjay England Last menstrual period (LMP) or EDC (due date): N/A documented in this encounter Plan of Treatment Not on file documented as of this encounter Visit Diagnoses Not on filedocumented in this encounter Care Teams Central Service Technician Relationship Specialty Start Date End Date Ritesh De La Cruz MD PCP - General 06/12/10 03/15/22 [facility], Pcp PCP - General Internal Medicine 03/16/22 10/19/22 Marii Dunn MD [address] [place] [id number] PCP - General Internal Medicine 10/20/22 10/23/23 Warren Hussein MD [address] [place] [address] PCP - General Internal Medicine 10/24/23 documented as of this encounter
--- OUTSIDE RECORDS SUMMARY | 2024-07-17 13:42 | XMS_ITS | Encounter Summary ---
Author Organization [facility] Address [address] [place] [address] Care Team Providers Care Partner Cco Name Role Phone Ritesh De La Cruz MD Primary Care Provider [facility], Pcp Primary Care Provider Marii Dial MD Primary Care Provider Warren Hussein MD Primary Care Provider + Reason for Visit * Reason Onset Date Comments Rash 08/23/2014 Encounter Details Date Type Department Care Team Description 08/23/2014 Telephone Pediatrics - [address] [address] Ritesh De La Cruz MD Rash Social History Tobacco Use Types Packs/Day Years Used Date Smoking Tobacco: Never Smokeless Tobacco: Never Comments:parents Alcohol Use Standard Drinks/Week Comments Not Asked 0 (1 standard drink = 0.6 oz pur e alcohol) Sex Assigned at Date Recorded Not on file Job Start Date Occupation Industry Not on file Not on file Not on file documented as of this encounter Miscellaneous Notes * Telephone Encounter - Gilda Salter L.P.N. - 08/23/2014 9:05 AM EDT Was seen 2 days ago, for rash, sx > . Hands are painful. Breathing fine, Mom leaving work now will be here by 10:15am * Telephone Encounter - Loulou Winters - 08/23/2014 8:53 AM EDT Signs/Symptoms: Mom states noelleeint was given a cream for rash on 08/21/14 Rash is getting worst and patient had difficultly sleeping is in pain Duration of symptoms: Few days Temperature: na Allergies: Review of patient's allergies indicates no known allergies. Any chronic illnesses: Patient Active Problem List Diagnosis Code ??? Constipation 564.00 Is the child taking any medications: Current Outpatient Prescriptions Medication Sig Dispense Refill ??? permethrin (ELIMITE) 5 % cream Apply cream from head to toe; leave on for 8- 14 hours before washing off with water, repeat in one week 60 g 0 ??? hydrocortisone (WESTCORT) 0.2 % cream Apply sparingly to affected area twice daily for 1-2 weeks 30 g 1 No current facility-administered medications for this visit. documented in this encounter Plan of Treatment Not on file documented as of this encounter Visit Diagnoses Not on filedocumented in this encounter Care Teams Partner Cco Relationship Specialty Start Date End Date Ritesh De La Cruz MD PCP - General 06/12/10 03/15/22 [facility], Pcp PCP - General Internal Medicine 03/16/22 10/19/22 Marii Dunn MD [address] [place] [id number] PCP - General Internal Medicine 10/20/22 10/23/23 aWrren Hussein MD [address] [place] [id number] PCP - General Internal Medicine 10/24/23 documented as of this encounter
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
--- OUTSIDE RECORDS SUMMARY | 2024-07-17 13:43 | XMS_ITS | Encounter Summary ---
Author Organization [facility] Address [address] [place] [address] Care Team Providers Care Blind Installer Name Role Phone Ritesh De La Cruz MD Primary Care Provider Jelena gaspar [facility], Pcp Primary Care Provider Marii Dial MD Primary Care Provider [phone] Warren Hussein MD Primary Care Provider + Encounter Details Date Type Department Care Team Description 06/16/2010 Release of Information Medical Records [address] [place] [address] Abstract, Provider Social History Tobacco Use Types Packs/Day Years Used Date Smoking Tobacco: Passive Smo ke Exposure - Never Smoker Smokeless Tobacco: Never Comments:parents Alcohol Use Standard [...] on filedocumented in this encounter Care Teams Blind Installer Relationship Specialty Start Date End Date Ritesh De La Cruz MD PCP - General 06/12/10 03/15/22 [facility], Pcp PCP - General Internal Medicine 03/16/22 10/19/22 Marii Dunn MD [address] [place] [id number] PCP - General Internal Medicine 10/20/22 10/23/23 Warren Hussein MD [address] [place] [address] PCP - General Internal Medicine 10/24/23 documented as of this encounter
[2024-07-17] MEDS: Ondansetron ODT 4 MG TAB.RAPDIS TRANSLINGU (15:09)
--- NOTE | 2024-07-17 15:21 | ED.PSYCH ---
HPI - Psych General Chief Complaint: Psychiatric Symptoms Stated Complaint: Crisis Time Seen by Provider: 07/17/24 11:54 History of Present Illness HPI Narrative: Patient is 23-year-old female. Had history of depression. Patient had plans of cutting herself. No guns in the house. Feels depressed. Been under a lot of stress. No guns in the house. Related Data Home Medications ?Medication ?Instructions ?Recorded ?Confirmed No Known Home Meds 07/17/24 07/17/24 Allergies Allergy/AdvReac Type Severity Reaction Status Date / Time No Known Allergies Allergy Verified 07/17/24 11:32 Review of Systems Review of Systems: Positive depression positive thoughts of self-harm Yes all other systems are reviewed and are negative [facility] Past Medical History Attestation statement: The following information was validated with the patient. Medical History Ovarian cyst Heart murmur Social History Social History Smoked in Last 30 Days: Yes Use of substances other than those prescribed or required for medical reasons: Yes Substance Use Type: Marijuana Any prior treatment program specific to substance use: No Advance Directives: No Advance Directives Information Provided: Yes Do you have a plan to hurt others: No Plan Patient : No Physical Exam Vital Signs: Vital Signs: Last Vital Signs Temp 98.1 F 07/17/24 11:29 Pulse 150 H 07/17/24 11:29 Resp 12 07/17/24 11:29 BP 133/100 H 07/17/24 11:29 Pulse Ox 100 07/17/24 11:29 O2 Del Method Room Air 07/17/24 11:29 BMI result Body Mass Index 17.2 Appearance: Alert. Oriented X3. No acute distress. Eyes: Pupils equal, round and reactive to light. ENT: Pharynx normal. Neck: Normal inspection. Neck supple. No lymph nodes noted. No crepitus CVS: Normal heart rate and rhythm. Pulses normal. Normal S1 and S2 Respiratory: No respiratory distress. Breath sounds normal. No Wheezing. No rales Abdomen: Soft and nontender. No rigidity. No distention. good BS x4 Skin: Skin warm and dry. Normal skin color. Normal skin turgor. Extremities: No lower extremity edema. Neurovascular intact to all extremities. No Lacerations. No Rash Neuro: Oriented X 3. No motor deficit. No sensory deficit. Moving all extermities. No slurred speech. Cranial nerves intact Medications Administered Discontinued Medications Generic Name Dose Route Start Last Admin Trade Name Phongq PRN Reason Stop Dose Admin Ondansetron HCl 4 mg 07/17/24 14:13 07/17/24 15:09 Ondansetron Odt 4 Mg Tab.Rapdis TRANSLINGU 07/17/24 14:14 4 mg ONCE ONE Administration Medical Decision Making Medical Decision Making [facility] Narrative: Patient well appearing no acute distress. Labs showed no alcohol no salicylate patient's thyroid is normal no acute distress. Care team was consulted. Currently awaiting evaluation. Differential Diagnosis Differential Diagnoses: The differential diagnosis associated with the presentation includes Suicidal ideation, depression Admission/Observation Consideration of admission/observation: Escalation of care including admission/observation considered Consult Healthcare Provider Management of the patient was discussed with: Behavioral Health Provider Lab Data [facility] Lab Attestation statement: I reviewed the patient's lab results. 07/17/24 11:51 07/17/24 11:51 Labs: Lab Results 07/17/24 07/17/24 07/17/24 Range/Units 11:51 12:52 12:53 WBC 11.2 H (4.8-10.8) X10*3/uL RBC 4.75 (4.20-5.50) X10*6/uL Hgb 14.4 (12.0-16.0) g/dl Hct 42.4 (37.0-47.0) % MCV 89.3 (80.0-98.0) fL MCH 30.3 (27.0-33.0) pg MCHC 34.0 (31.0-35.0) g/dl RDW 12.0 (11.0-16.0) % Plt Count 310 D (160-400) X10*3/uL MPV 11.1 (9.4-12.3) fL Immature Gran % (Auto) 0.2 (0.0-0.4) % Neut % (Auto) 74.0 H (45-73) % Lymph % (Auto) 18.9 L (20-40) % [place] % (Auto) 6.2 (2-11) % Eos % (Auto) 0.4 (0-4) % Baso % (Auto) 0.3 (0-2) % Lymph # (Auto) 2.1 (1.2-4.9) X10*3/uL [place] # (Auto) 0.7 (0.1-1.2) X10*3/uL Eos # (Auto) 0.0 (0.0-0.4) X10*3/uL Baso # (Auto) 0.0 (0.0-0.2) X10*3/uL Abs Immat Gran (auto) 0.02 (0.00-0.03) X10*3/uL Absolute Neuts (auto) 8.3 (2.0-8.3) x10*3/uL Absolute Nucleated RBC 0.000 (0.0-0.012) X10*3/uL Nucleated RBC % (auto) 0.0 (0.0-0.2) /100WBC Sodium 140 (135-145) mmol/L Potassium 3.5 (3.3-5.1) mmol/L Chloride 102 (96-108) mmol/L Carbon Dioxide 25 (22-29) mmol/L Anion Gap 17 (12-20) BUN 5 L (9-16) mg/dL Creatinine 0.76 (0.5-1.4) mg/dL Estim Creat Clear Calc 78.7 Estimated GFR > 60 Random Glucose 157 H (60-115) mg/dL Calcium 10.2 (8.4-10.2) mg/dL Total Bilirubin 1.9 H (0.0-1.0) mg/dL AST 29 (5-31) U/L ALT 13 (0-31) U/L Alkaline Phosphatase 106 (39-117) U/L Total Protein 8.8 H (6.5-8.0) g/dL Albumin 5.1 H (3.5-5.0) g/dL TSH 0.30 L (0.32-4.0) uIU/mL Free T4 1.28 (0.71-1.85) ng/dL Urine Color Dark Yellow Urine Appearance Clear Urine pH 5.5 (5.0-9.0) Ur Specific [place] >= 1.030 H (1.005-1.025) Urine Protein 300 (3+) H (Neg-Trace) mg/dL Urine Glucose (UA) Negative (Negative) mg/dL Urine Ketones 15 (Negative) mg/dL Urine Blood Negative (Negative) Urine Nitrite Negative (Negative) Ur Leukocyte Esterase Trace H (Negative) Urine RBC 0-2 (0-2) /HPF Urine WBC 0-5 (0-5) /HPF Ur Squamous Epith Cells 11-20 (0-2) /HPF Urine Bacteria Trace (None Seen) Hyaline Casts 3-5 (0-2) /LPF Urine Test NEGATIVE (NEGATIVE) Salicylates < 5.0 L (15-30) mg/dL Urine Opiates Screen Not Detected (Not Detect) Ur Buprenorphine Scrn Not Detected (Not Detect) ng/mL Ur Oxycodone Screen Not Detected (Not Detect) ng/mL Urine Methadone Screen Not Detected (Not Detect) ng/mL Urine Fentanyl Screen Not Detected (Not Detect) Acetaminophen < 3 (<30) mcg/mL Ur Barbiturates Screen Not Detected (Not Detect) Ur Phencyclidine Scrn Not Detected (Not Detect) Ur Amphetamines Screen Not Detected (Not Detect) U Benzodiazepines Scrn Not Detected (Not Detect) Urine Cocaine Screen Not Detected (Not Detect) U Marijuana (THC) Screen POSITIVE H (Not Detect) Ethyl Alcohol < 10 mg/dL Independent Interpretation I performed an independent interpretation of an: EKG (My interpretation patient's EKG showed a sinus tachycardia heart rate was 120 UT QRS QTC normal no acute ST segment elevation noted.) Radiology Impression Discussion of test interpretation with radiology: I have reviewed the radiologist's reading. Social Determinants Patient?s care significantly limited by Social Determinants of Health including: Problems related to primary support group Discharge Plan Discharge Clinical Impression: Suicidal ideation Patient Disposition: Home, Self-Care Instructions: Suicide Prevention (ED) Prescriptions: No Action No Known Home Meds Referrals: Physician,None [Primary Care Provider] - 07/19/24 Interventions: [place]-Suicide Risk Severity Scale Last Done: 07/17/24 11:33 Print Language: Lebanese
--- NOTE | 2024-07-17 16:28 | MHC.CARE ---
Patient evaluated by the CARE Team recommended disposition is discharge with outpatient referrals to [facility], [facility] and a [facility] 3-day follow up. ED provider Dr. Mora updated and in agreement with plan.
[2024-07-17 17:00] VITALS: BP 103/68; PULSE 75; RESP 14; TEMP 36.9; O2SAT 98
--- NOTE | 2024-07-17 22:42 | MHC.CARE ---
RAD Team made referrals to PHP & [facility] for this pt. Will follow up tomorrow
== END 2024-07-17 17:14 | disposition home or self-care (01) ==
PROVIDERS: Physician Assistant; Emergency Provider Emergency Medicine Emergency Medical Services
DX: R45.851 Suicidal ideations (principal); R01.1 Cardiac murmur, unspecified
CPT/HCPCS: 36415; 80053; 80143; 80179; 80307; 81001; 81025; 84439; 84443; 85025; 93005; 99284; 99285; S9485

== ENCOUNTER → 2024-07-17 11:35 | Outpatient (BNV) | payer OTHER, SELFPAY | PROVIDERS: Emergency Provider Emergency Medicine Emergency Medical Services; Visit Provider Internal Medicine Cardiovascular Disease | DX: R00.0 Tachycardia, unspecified (principal) | CPT/HCPCS: 93010 ==